=== PATIENT | male | born 1990 | race African-American/Black ===

== ENCOUNTER 2018-02-19 23:26 | Emergency (ER) | payer OTHER ==
[2018-02-19 23:45] LABS: ADD MAN DIFF? NO
[2018-02-19 23:47] LABS: BASOPHILS % 0.2 % (0.0-2.0); EOSINOPHILS # 0.1 10^3/ul (0.0-0.5); EOSINOPHILS % 0.3 % (0.0-7.0); HEMATOCRIT 39.1 % (42.0-52.0); HEMOGLOBIN 13.1 g/dl (14.0-18.0); LYMPHOCYTES # 3.2 10^3/ul (0.8-2.9); LYMPHOCYTES % 20.2 % (15.0-51.0); MEAN CORPUSCULAR HGB CONC 33.5 g/dl (32.0-37.0); MEAN CORPUSCULAR VOLUME 92.7 fl (82.0-101.0); MONOCYTE # 1.3 10^3/ul (0.3-0.9); MONOCYTES % 7.8 % (0.0-11.0); NEUTROPHIL # 11.4 10^3/ul (1.6-7.5); PLATELET COUNT 332 10^3/UL (140-415); RED BLOOD COUNT 4.22 10^6/ul (4.70-6.10); RED CELL DISTRIBUTION WIDTH 13.1 % (11.5-14.5)
[2018-02-19] MEDS: LEVETIRACETAM 1000 MG (PMX) 100 ML IVPB (23:49)
[2018-02-20 00:06] LABS: ANION GAP 12 (8-16); BLOOD UREA NITROGEN 8 mg/dl (7-20); CALCIUM 9.2 mg/dl (8.4-10.2); CARBON DIOXIDE 28 mmol/L (21-31); CHLORIDE 104 mmol/L (97-110); CREATININE 1.11 mg/dl (0.61-1.24); GLUCOSE 99 mg/dl (70-220); POTASSIUM 3.6 mmol/L (3.5-5.1); SODIUM 140 mmol/L (135-144)
== END 2018-02-20 02:21 | disposition home or self-care (01) ==
LOC: E/R 23:26
DX: G40.909 Epilepsy, unspecified, not intractable, without status epilepticus (principal); R40.2142 Coma scale, eyes open, spontaneous, at arrival to emergency department; R40.2362 Coma scale, best motor response, obeys commands, at arrival to emergency department; R40.2252 Coma scale, best verbal response, oriented, at arrival to emergency department; F17.200 Nicotine dependence, unspecified, uncomplicated; J45.909 Unspecified asthma, uncomplicated; F17.210 Nicotine dependence, cigarettes, uncomplicated; Z71.6 Tobacco abuse counseling
CPT/HCPCS: 36415; 80048; 85025; 96374; 99284-25

== ENCOUNTER 2019-01-13 09:34 | Emergency (ER) | payer OTHER ==
[2019-01-13 10:07] LABS: ADD MAN DIFF? NO
[2019-01-13 10:08] LABS: BASOPHILS % 0.2 % (0.0-2.0); EOSINOPHILS % 0.1 % (0.0-7.0); HEMATOCRIT 41.1 % (42.0-52.0); HEMOGLOBIN 13.5 g/dl (14.0-18.0); LYMPHOCYTES % 6.5 % (15.0-51.0); MEAN CORPUSCULAR HEMOGLOBIN 31.5 pg (29.0-33.0); MEAN CORPUSCULAR HGB CONC 32.8 g/dl (32.0-37.0); MEAN CORPUSCULAR VOLUME 95.8 fl (82.0-101.0); MEAN PLATELET VOLUME 8.1 fl (7.4-10.4); MONOCYTE # 0.7 10^3/ul (0.3-0.9); MONOCYTES % 4.6 % (0.0-11.0); NEUTROPHIL # 13.9 10^3/ul (1.6-7.5); PLATELET COUNT 346 10^3/UL (140-415); RED BLOOD COUNT 4.29 10^6/ul (4.70-6.10); RED CELL DISTRIBUTION WIDTH 13.2 % (11.5-14.5)
[2019-01-13 10:08] LABS: WHITE BLOOD COUNT 15.8 10^3/ul (4.8-10.8)
[2019-01-13] MEDS: LORAZEPAM 2 MG INJ IV ×2 (10:14→11:22)
[2019-01-13 10:29] LABS: ANION GAP 7 (5-13); BLOOD UREA NITROGEN 14 mg/dl (7-20); CALCIUM 9.4 mg/dl (8.4-10.2); CARBON DIOXIDE 27 mmol/L (21-31); CHLORIDE 106 mmol/L (97-110); CREATININE 0.87 mg/dl (0.61-1.24); Estimated GFR > 60 mL/min (>60); GLUCOSE 104 mg/dl (70-220); POTASSIUM 4.8 mmol/L (3.5-5.1); SODIUM 140 mmol/L (135-144)
[2019-01-13] MEDS: FOSPHENYTOIN (PE) 1,000 MG in SOD CHLORIDE 0.9% 80 ML IVPB (12:26)
[2019-01-13] MEDS ORDERED: HYDROCODONE/APAP (5/325) TAB PO (12:30)
[2019-01-13] MEDS ORDERED: NACL 0.9% 3 ML SYG IV (12:30)
[2019-01-13] MEDS ORDERED: LORAZEPAM 2 MG INJ IV (12:30)
[2019-01-13] MEDS ORDERED: morphine 2 MG INJ IV (12:30)
[2019-01-13] MEDS ORDERED: ONDANSETRON 4 MG INJ IV ×2 (12:30)
[2019-01-13] MEDS ORDERED: ACETAMINOPHEN 325 MG TAB PO ×2 (12:30)
[2019-01-13] MEDS: LEVETIRACETAM 1000 MG (PMX) 100 ML IVPB (13:58)
[2019-01-13] MEDS: SOD CHLORIDE 0.9% 1,000 ML IV (13:59)
[2019-01-13 14:00] LABS: PHENYTOIN (DILANTIN) 9.2 ug/ml (10.0-20.0)
[2019-01-13 14:01] LABS: CARBAMAZEPINE (TEGRETOL) 4.2 ug/ml (8.0-12.0)
[2019-01-13] MEDS: CARBAMAZEPINE 200 MG TAB PO (18:52)
[2019-01-14] MEDS ORDERED: PANTOPRAZOLE 40 MG INJ IV (06:00)
== END 2019-01-13 18:58 | disposition left against medical advice (07) ==
LOC: E/R 09:34
DX: G40.901 Epilepsy, unspecified, not intractable, with status epilepticus (principal); J45.909 Unspecified asthma, uncomplicated; R40.2132 Coma scale, eyes open, to sound, at arrival to emergency department; R40.2212 Coma scale, best verbal response, none, at arrival to emergency department; R40.2352 Coma scale, best motor response, localizes pain, at arrival to emergency department; Z87.891 Personal history of nicotine dependence
CPT/HCPCS: 36415; 70450; 80048; 80156; 80185; 85025; 87040-91; 96374; 96375; 96376; 99285-25